=== PATIENT | male | born 1955 | race Caucasian/White ===

== ENCOUNTER 2018-09-05 00:17 | Inpatient (IN) | payer SELFPAY ==
[2018-09-05 00:45] LABS: #Basophils 0.1 thou/uL (0.0-0.2); #Eosinphils 0.3 thou/uL (0.0-0.7); #Lymphocytes 1.3 thou/uL (1.20-3.40); #Monocytes 0.5 thou/uL (0.11-0.59); #Neutrophils 7.8 thou/uL (1.40-6.50); %Basophils 0.9 % (0.0-1.0); %Eosinophils 3.3 % (0.0-10.0); %Lymphocytes 12.8 % (21.0-51.0); %Monocytes 4.9 % (0.0-10.0); Hemoglobin 13.1 g/dL (14.0-18.0); Mean Platelet Volume 7.8 fL (7.4-10.4); Platelet Count 225 thou/uL (130-400); RBC Distribution Width 12.5 % (11.5-14.5); Red Blood Cell (RBC) Count 4.36 mill/uL (4.70-6.10)
[2018-09-05 00:52] LABS: INR-International Normal Ratio 1.1; PTT 26.3 SEC (22.9-36.1); Prothrombin Time 13.9 SEC (12.0-14.7)
[2018-09-05] MEDS ORDERED: Lorazepam 2 MG/ML VIAL ONE ×2 (01:04→01:46)
[2018-09-05 01:07] LABS: ALT (SGPT) 29 U/L (8-55); AST (SGOT) 26 U/L (5-34); Albumin 4.4 g/dL (3.4-4.8); Alcohol Less than 10 mg/dL (Less than 10); Alkaline Phosphatase 64 U/L (40-150); Anion Gap 20 mmol/L (10-20); BUN (Urea Nitrogen) 29 mg/dL (8.4-25.7); Bilirubin, Total 0.4 mg/dL (0.2-1.2); CK (CPK) 702 U/L (30-200); Calc. Creatinine Clearance 0 mL/min (70-130); Calcium 9.6 mg/dL (7.8-10.44); Carbon Dioxide 16 mmol/L (23-31); Chloride 108 mmol/L (98-107); Estimated GFR-MDRD 39; Globulin 3.6 g/dL (2.4-3.5); Glucose 106 mg/dL (80-115); Lipase 36 U/L (8-78); Potassium 4.6 mmol/L (3.5-5.1); Sodium 139 mmol/L (136-145)
[2018-09-05 01:17] LABS: Bilirubin Negative (Negative); Blood, Urine Negative (Negative); Clarity CLOUDY (Clear); Glucose, Urine (Dipstick) Negative (Negative); Leukocyte Negative (Negative); Nitrite Negative (Negative); Protein, Urine (Dipstick) 100 mg/dL (Neg-Trace); Specific Gravity, Urine 1.019 (1.002-1.036); Urobilinogen 0.2 mg/dL (0.2-1.0)
[2018-09-05 01:23] LABS: Bacteria/HPF None Seen HPF (None Seen); Hyaline Casts/LPF 7-10 HYALINE CAST LPF (0-3 Hyaline); Pathc Cast-AUWi Flag 2.17 (0-2.49); RBC/HPF 0-3 HPF (0-3); Squamous Epithelial 0-3 HPF (0-3); WBC/HPF 0-3 HPF (0-3)
[2018-09-05] MEDS ORDERED: Acetaminophen 650 MG Suppository PR PRN (01:33)
[2018-09-05] MEDS ORDERED: Bisacodyl 10 MG SUPP PR PRN (01:33)
[2018-09-05] MEDS ORDERED: HumaLOG 300 UNITS/3 ML VIAL SC PRN (01:33)
[2018-09-05] MEDS ORDERED: Senokot S 8.6-50 MG TAB PO PRN ×2 (01:33)
[2018-09-05] MEDS ORDERED: Diabetic Tussin 200 MG/10 ML UDCUP PO PRN (01:33)
[2018-09-05] MEDS ORDERED: Benzonatate 100 MG CAP PO PRN (01:33)
[2018-09-05] MEDS ORDERED: Bisacodyl 5 MG TAB PO PRN (01:33)
[2018-09-05] MEDS ORDERED: Acetaminophen 325 MG TAB PO PRN (01:33)
[2018-09-05] MEDS ORDERED: Dextrose 5% in Water 1,000 ML IV PRN (01:33)
[2018-09-05] MEDS ORDERED: Calcium Carbonate 500 MG ChewTAB PO PRN (01:33)
[2018-09-05] MEDS ORDERED: cloNIDine 0.1 MG TAB PO PRN (01:33)
[2018-09-05] MEDS ORDERED: Ondansetron PF 4 MG/2 ML Vial IVP PRN ×2 (01:33)
[2018-09-05] MEDS ORDERED: hydrALAZINE 20 MG/ML VIAL SLOW IVP PRN (01:33)
[2018-09-05] MEDS ORDERED: Nitroglycerin 0.4 MG TAB (25 Tab Bottle) SL PRN (01:33)
[2018-09-05] MEDS ORDERED: Dextrose 50% Abboject 50 ML SYRINGE SLOW IVP PRN (01:33)
[2018-09-05] MEDS ORDERED: Sodium Chloride 0.9% 1,000 ML IV SCH (01:45)
[2018-09-05] MEDS ORDERED: Dextrose 50% Abboject 50 ML SYRINGE ONE (01:46)
[2018-09-05 01:47] LABS: Medtox Reader # READER 4; THC/Cannabinoid Screen Not Detected (NotDetected)
[2018-09-05 01:48] LABS: Amphetamine Not Detected (NotDetected); Barbiturates Screen Not Detected (NotDetected); Benzodiazepine Screen Not Detected (NotDetected); Cocaine Metabolite Screen Not Detected (NotDetected); Medtox Control Line Valid? VALID (VALID); Methadone Not Detected (NotDetected); Methamphetamine Not Detected (NotDetected); Opiate Screen Not Detected (NotDetected); Oxycodone Screen Not Detected (NotDetected); Phencyclidine (PCP) Not Detected (NotDetected); Tricyclic Screen Not Detected (NotDetected)
[2018-09-05] MEDS ORDERED: Multivitamins, Adult 10 ML, Folic Acid 1 MG, Thiamine HCl 100 MG in Dextrose 5 %-0.45 %... IV SCH (02:30)
[2018-09-05] MEDS: Lorazepam 2 MG/ML VIAL SLOW IVP PRN ×4 (03:07→10:05)
[2018-09-05 03:13] VITALS: BMI 31.4
--- NOTE | 2018-09-05 03:46 | HP ---
PRIMARY CARE PHYSICIAN: Dr. Abdi Prescott. CHIEF COMPLAINT: Altered mental status. HISTORY OF PRESENTING ILLNESS: Mr. Duff is a 62-year-old male with past medical history of diabetes and hypertension and coronary artery disease, who presented to the emergency room with above-mentioned complaint. History is mainly obtained by the patient's daughter present at the bedside and discussed with admitting ER physician, Dr. Jha. Mr. Duff was brought into the emergency room after he was found on the floor, very somnolent by the family members. History is very sketchy as his who lives with him, found him down, and she is not in the emergency room at this time. Daughter is at bedside. The daughter reports that she was called to their house and it was found that the patient was unresponsive and diaphoretic around 0830 hours last evening. Reportedly, he was working in the barn and drinking and went inside the house to eat. He was found lying on the floor unresponsive, but EMS was not called for about 4 hours. The daughter reports that he does drink on a daily basis and also makes Diamond. She is unsure when was his last drink. She has last seen him last weekend and at that time, he was his normal self. She denies any recent illnesses on behalf of the patient. She denies any history of mental illness or dementia. EMS found the patient very combative, and he received multiple doses of ketamine to calm him down. They also found that he has had blood sugar of 27 and he received dextrose, thiamine, and D50 bumping up his sugars to 120. Upon presentation to the emergency room, his blood pressure was 176/91. He was tachycardic with a pulse of 114. His temperature is recorded as 100. He was very combative in the emergency room and is requiring multiple doses of IV Ativan to calm him down. He is otherwise hemodynamically stable at this time and is able to protect his airways. His further evaluation included serum chemistries, which showed creatinine of 1.76, bicarb of 16 with normal anion gap. His blood sugar has been dwindling anywhere from 60 to 120, is requiring more dextrose injections. His lactic acid came back elevated at 8.5, creatine kinase high at 702. Urinalysis unremarkable. Urine drug screen negative. Plasma alcohol level less than 10. His head CT is reportedly within normal limit and chest x-ray by my review is unremarkable. He was given IV fluids in the emergency room and is now being admitted for further evaluation and care. He does not have any overt signs or symptoms of infection. Elevated lactic acid is thought to be secondary to rhabdomyolysis, dehydration, and possibly free water deficit. PAST MEDICAL HISTORY: 1. Coronary artery disease. 2. Hypertension. 3. Diabetes. PAST SURGICAL HISTORY: Coronary artery bypass graft. ALLERGIES: KNOWN ALLERGIES TO CONTRAST DYE. CURRENT MEDICATIONS: Unavailable. The daughter will bring the medications in the morning. There is no medication list available on the patient. FAMILY HISTORY: Unable to obtain due to altered mental status on the patient's behalf. The daughter does not have any medical illnesses to report. REVIEW OF SYSTEMS: Unable to obtain due to altered mental status. LABORATORY STUDIES: Lab examination; his CBC shows WBCs at 10.0 with 78% neutrophils, otherwise unremarkable. PT, PTT, INR are unremarkable. Serum chemistry showed chloride of 108, bicarb 16, BUN 29, creatinine 1.76 with lactic acid of 8.5. His liver enzymes are unremarkable. Creatine kinase is 702. Lipase normal. Urinalysis shows some proteinuria, otherwise unremarkable. Urine drug screen and plasma alcohol levels are normal. Chest x-ray by my review shows no evidence of any effusion, edema, or infiltrate. A 12-lead EKG by my review shows sinus tachycardia with some PACs, otherwise no acute ST or T-wave changes. CT scan of the brain, preliminary read is negative for any intracranial bleed or acute infarction. Formal report is pending at this time. PHYSICAL EXAMINATION: VITAL SIGNS: Most recent vital signs; blood pressure 158/78, pulse of , respirations 22, temperature 100 degrees, saturating 95% on 4 L oxygen. GENERAL: The patient is very combative, altered and is not able to follow any commands. His eyes are open, but he does not respond. He is thrashing around in the bed and is in restraints. HEENT EXAMINATION: Mucous membrane is slightly dry. No oropharyngeal exudate or erythema. Pupils are dilated and reactive to light. NECK: Supple without any lymphadenopathy, JVD, or bruit. CHEST: Clear to auscultation without any wheezing, rales, or rhonchi. CARDIAC: He is tachycardic with a regular rhythm without any specific murmurs. ABDOMEN: Slightly distended. No rebound, guarding, or rigidity. Bowel sounds are heard. Soft. EXTREMITIES: Free of any cyanosis, clubbing, or edema. NEUROLOGICAL: Examination is very limited because the patient does not follow any commands. He was also in four-point restraints at this time. Arredondo catheter is in place with clear urine. SKIN: Free of any rashes or bruises. Feels warm and dry to touch. EXTREMITIES: Free of any cyanosis, clubbing, or edema. IMPRESSION AND PLAN: 1. Altered mental status, most likely due to hypoglycemia, but sepsis also cannot be ruled out with elevated lactic acid and low-grade fever. We will obtain blood cultures and admit him to the IM. I have discussed with the daughter, and he will be a full code until he is able to make his own decisions. Daughter is his spokesperson for now. At this time, no clear etiology for his mentation changes is available. We may need to obtain an MRI of his brain with and without, an EEG to rule out acute CVA and-or seizures. At this time, we will make sure that he is hemodynamically stable and continue supportive care. Blood cultures have been ordered. No real indication for antibiotic at this time. Fall and aspiration precautions will be instituted. 2. Elevated lactic acid, most likely due to tissue hypoperfusion and rhabdomyolysis. We will resuscitate him with IV fluids and recheck the lactic acid. As above, sepsis cannot be ruled out. Blood cultures will be ordered. 3. Rhabdomyolysis. The patient has been lying on the floor for hours. We will start him on IV fluids and recheck CPK in the morning. 4. Acute renal insufficiency. Baseline is unknown. Once again, pre-renal azotemia due to dehydration and poor oral intake is suspected. Resuscitated with IV fluids and recheck in the morning. Avoid any nephrotoxins. 5. Hypoglycemia due to poor oral intake. The patient has history of hypoglycemia multiple times requiring intervention on his family's behalf. We will start him on hypoglycemia protocol and monitor blood sugar carefully. 6. History of coronary artery disease. We will obtain his home medications and restart when he can safely take it. We would check cardiac enzymes at this time as well to rule out acute cardiac event as the reason for his presentation. 7. Diabetes mellitus. We will hold any oral hypoglycemic or long-acting insulin for now. Start him on gentle sliding scale insulin with frequent Accu-Cheks. 8. Chronic alcoholism. He is very high risk for alcohol withdrawal. Ativan p.r.n. has been ordered. He will be started on folic acid, thiamine, and multivitamin. We will give him one banana bag for now. 9. Hypertension, currently controlled. We will add p.r.n. antihypertensives for now and reconfirm his home medications in the morning from his pharmacy. 10. Code status. I have briefly discussed this with his daughter at bedside. Full code for now. This will further be confirmed once the patient is more awake. 11. Deep venous thrombosis and gastrointestinal prophylaxis. DISPOSITION: Mr. Duff is currently being admitted to IM for altered mental status and lactic acidosis. Further management will depend upon his clinical course. Estimated length of stay at this time is at least 2 to 3 midnights. Job ID: [id number]
[2018-09-05] MEDS: Dextrose 5 %-0.45 % NaCl 1,000 ML IV SCH ×4 (04:29→22:10)
[2018-09-05 04:31] LABS: #Eosinphils 0.2 thou/uL (0.0-0.7); #Lymphocytes 0.9 thou/uL (1.20-3.40); #Monocytes 0.6 thou/uL (0.11-0.59); %Basophils 0.3 % (0.0-1.0); %Eosinophils 1.7 % (0.0-10.0); %Lymphocytes 9.1 % (21.0-51.0); %Monocytes 6.4 % (0.0-10.0); %Neutrophils 82.6 % (42.0-75.0); Hemoglobin 11.8 g/dL (14.0-18.0); Mean Corpuscular HGB CONC 33.6 g/dL (32.0-36.0); Mean Corpuscular Hemoglobin 30.1 pg (27.0-31.0); Mean Corpuscular Volume 89.6 fL (78.0-98.0); Mean Platelet Volume 8.1 fL (7.4-10.4); Platelet Count 177 thou/uL (130-400); RBC Distribution Width 12.5 % (11.5-14.5); Red Blood Cell (RBC) Count 3.91 mill/uL (4.70-6.10); White Blood Cell (WBC) Count 9.7 thou/uL (4.8-10.8)
[2018-09-05 04:41] LABS: Lactic Acid 1.1 mmol/L (0.5-2.2)
[2018-09-05 04:42] LABS: Anion Gap 12 mmol/L (10-20); BUN (Urea Nitrogen) 26 mg/dL (8.4-25.7); Calc. Creatinine Clearance 74 mL/min (70-130); Carbon Dioxide 21 mmol/L (23-31); Chloride 107 mmol/L (98-107); Estimated GFR-MDRD 47; Glucose 116 mg/dL (80-115); Potassium 4.2 mmol/L (3.5-5.1); Sodium 136 mmol/L (136-145)
--- NOTE | 2018-09-05 08:12 | CT ---
PRELIMINARY REPORT/[facility]/EMERGENCY AFTER HOURS PROCEDURE: EXAM: CT Head Without Contrast EXAM DATE/TIME: 09/05/2018 12:33 AM CLINICAL HISTORY: 62 years old, male; Signs and symptoms; Altered mental status/memory loss; Patient HX: Enrique presents to ed via ems for complaint of AMS, ems called by pt's . Per ems, PT given 400 ketamine im initially for combativeness and then given 60 ketamine iv x2 for continued combativeness. Ems states PT was la connie on floor groaning and thrashing on their arrival to the pt's home. Ems also reports PT has HX of dm and has not eaten since 11: 00 this am and had glucose of 27 f or which PT was given 25 of dextrose, 100 of thiamine, and 10ml d50 with last glucose at 120 TECHNIQUE: Imaging protocol: Axial computed tomography images of the head/brain without contrast. COMPARISON: No relevant prior studies available. FINDINGS: Brain: Scattered areas of hypoattenuation, likely chronic small vessel ischemic change, demyelination , or gliosis. There is parenchymal atrophy. No mass, hemorrhage, or acute infarction. Ventricles: Normal. Bones/joints: Normal. Sinuses: Minimal ethmoid sinus disease. Mastoid air cells: Normal as visualized. Soft tissues: Unremarkable. Vasculature: Atherosclerotic vascular calcifications. IMPRESSION: No acute intracranial abnormality. Thank you for allowing us to participate in the care of your patient. Dictated and Authenticated by: Lemuel Tamez MD 09/05/2018 1:21 AM Central Time ([place] & [place]) FINAL REPORT EMERGENCY AFTER HOURS CT BRAIN PERFORMED WITHOUT CONTRAST ENHANCEMENT: Date: 09/05/18 HISTORY: Altered mental status. FINDINGS: Ventricular and cisternal system shows some mild atrophy. There are no signs of intracerebral hemorrh age or extra-axial fluid collections. Mastoid air cells are underdeveloped. This is a developmental f ining. Visualized sinuses are clear. There is minimal ethmoid air cell mucosal change. IMPRESSION: No acute intracranial abnormalities. This report is in agreement with the preliminary report issued by [facility]. POS: [facility]
--- NOTE | 2018-09-05 08:27 | RAD ---
PORTABLE CHEST: History: Altered mental status. FINDINGS: Heart size within normal limits. There are post op sternotomy changes. The lungs are clear of infiltr ate. No significant bony findings. IMPRESSION: No active intrathoracic disease. POS: [facility]
[2018-09-05] MEDS: Famotidine/PF 20 mg/2ml Vial SLOW IVP SCH (08:42)
[2018-09-05] MEDS: Heparin 5,000 UNITS/ML VIAL SC SCH ×3 (08:43→20:02)
[2018-09-05] MEDS: Folic Acid 1 MG TAB PO SCH (08:43)
[2018-09-05] MEDS: Lorazepam 2 MG/ML VIAL SLOW IVP SCH ×3 (12:52→20:01)
[2018-09-05] MEDS: Haloperidol Lactate 5 MG/ML VIAL SLOW IVP SCH ×3 (12:53→20:01)
[2018-09-05] MEDS: HumaLOG 300 UNITS/3 ML VIAL SC PRN ×2 (12:57→15:45)
--- NOTE | 2018-09-05 17:51 | CON ---
DATE OF CONSULTATION: 09/05/2018 HISTORY OF PRESENT ILLNESS: Mr. Duff is a 62-year-old male found down hypoglycemic at home. He is still encephalopathic in the critical care unit. There is a very prolonged period of time before EMS was called for the admission note. He has a history of not checking his blood sugars and just giving himself insulin, and he has had hypoglycemic episodes at home reportedly. Apparently, the family just put something sweet in his mouth when these episodes occur. PAST MEDICAL HISTORY: Remarkable for coronary artery disease, hypertension, diabetes, and coronary artery bypass grafting. ALLERGIES: REPORTED ALLERGY TO IV DYE. MEDICATIONS: At home are unknown. FAMILY HISTORY: Unknown. SOCIAL HISTORY: Unknown. REVIEW OF SYSTEMS: 10 point review of systems completed, not obtainable. He has four-point restraints in place. PHYSICAL EXAMINATION: VITAL SIGNS: Heart rate 94, blood pressure 108/88, respiratory rate is 20, and pulse oximetry is 99%. HEENT: Pupils are reactive. Sclerae are anicteric. NECK: Supple. GENERAL: He will not follow commands. He will not make eye contact. LUNGS: Remarkable for coarse equal breath sounds. HEART: Regular rhythm. S1 and S2 are normal. ABDOMEN: Soft and nontender. EXTREMITIES: Without asymmetry, clubbing, or edema. LABORATORY DATA: White count 9.7, hemoglobin 11.8, and platelets 177. Sodium 136, potassium 4.2, chloride 107, bicarb 21, BUN 26, creatinine 1.5. Creatinine is 1.76 early this morning when he was admitted. Glucoses have been 112 on admission, 44 , 342 112 when last checked. IMPRESSION: Encephalopathy secondary to prolonged hypoglycemia. His encephalopathy will be slow to resolve most likely. I doubt he has had a thrombotic cerebrovascular accident. CAT scan showed no hemorrhagic cerebrovascular accident. He will not hold still for an MRI, so there is really no reason to do an MRI at this point. Recommended Haldol, mixed with Ativan since he is a heavy drinker by history IV every hour. Hopefully, we will see gradual improvement of his encephalopathy. D5 was added for his hypoglycemia, did receive thiamine reportedly in the emergency room. TIME SPENT: This is a 70-minute consult, with greater than 50% of the time is spent on the unit coordinating care. Job ID: [id number] [facility]
--- NOTE | 2018-09-05 22:36 | PDOC.EVN ---
Event Note - Event Note Event Note: Patient examined. Discussed case with patient's daughter who is at the bedside. Patient has had episodes similar to this in the past, but came around after EMS interventions. He is started to come around. He had been very combative in the ED and required a large amount of meds. Now on Haldol and ativan. Suspect he was severely hypoglycemic and then received the meds in ED and EMS. Will need to maintain blood sugars and give him some time to wear off some of the meds. Daughter indicates he goes days without drinking and does not have WD problems.
[2018-09-06] MEDS: Haloperidol Lactate 5 MG/ML VIAL SLOW IVP SCH ×3 (00:32→08:29)
[2018-09-06] MEDS: Lorazepam 2 MG/ML VIAL SLOW IVP SCH ×5 (00:33→16:38)
[2018-09-06] MEDS: HumaLOG 300 UNITS/3 ML VIAL SC PRN ×4 (00:49→21:14)
[2018-09-06] MEDS: Lorazepam 2 MG/ML VIAL SLOW IVP PRN (03:20)
[2018-09-06] MEDS: Dextrose 5 %-0.45 % NaCl 1,000 ML IV SCH ×2 (04:33→16:24)
[2018-09-06] MEDS: Heparin 5,000 UNITS/ML VIAL SC SCH ×3 (08:31→19:55)
[2018-09-06] MEDS: Famotidine/PF 20 mg/2ml Vial SLOW IVP SCH (08:31)
[2018-09-06] MEDS: Folic Acid 1 MG TAB PO SCH (08:32)
[2018-09-06] MEDS ORDERED: Ziprasidone 20 MG VIAL IM PRN (09:21)
[2018-09-06 10:01] LABS: #Basophils 0.1 thou/uL (0.0-0.2); #Lymphocytes 0.9 thou/uL (1.20-3.40); #Monocytes 0.7 thou/uL (0.11-0.59); #Neutrophils 5.4 thou/uL (1.40-6.50); %Basophils 0.7 % (0.0-1.0); %Eosinophils 11.9 % (0.0-10.0); %Lymphocytes 11.3 % (21.0-51.0); %Monocytes 8.5 % (0.0-10.0); %Neutrophils 67.5 % (42.0-75.0); Hemoglobin 12.2 g/dL (14.0-18.0); Mean Corpuscular HGB CONC 33.9 g/dL (32.0-36.0); Mean Corpuscular Hemoglobin 30.3 pg (27.0-31.0); Mean Corpuscular Volume 89.6 fL (78.0-98.0); Mean Platelet Volume 7.9 fL (7.4-10.4); Platelet Count 147 thou/uL (130-400); RBC Distribution Width 12.2 % (11.5-14.5); Red Blood Cell (RBC) Count 4.02 mill/uL (4.70-6.10)
[2018-09-06 10:18] LABS: Anion Gap 10 mmol/L (10-20); BUN (Urea Nitrogen) 14 mg/dL (8.4-25.7); Calc. Creatinine Clearance 0 mL/min (70-130); Carbon Dioxide 23 mmol/L (23-31); Chloride 103 mmol/L (98-107); Estimated GFR-MDRD 55; Glucose 241 mg/dL (80-115); Potassium 4.2 mmol/L (3.5-5.1); Sodium 132 mmol/L (136-145)
--- NOTE | 2018-09-06 10:28 | PRG ---
DATE OF SERVICE: 09/06/2018 SUBJECTIVE: The patient has been encephalopathic all night long. He is in four-point restraints because of agitation. OBJECTIVE: VITAL SIGNS: Temperature 98.7, pulse 67, blood pressure 112/58. A 24-hour intake 3722, output 3405. HEENT: One open eyes to commands, but does talk and muffle phrases. NECK: No JVD. LUNGS: Clear to auscultation. CARDIAC: S1 and S2. Slightly tachycardic. ABDOMEN: Soft and nontender. EXTREMITIES: No edema. LABORATORY DATA: The chemistry and CBC from this morning are pending. ASSESSMENT: 1. Alcohol withdrawal. 2. Encephalopathy. 3. Prolonged hypoglycemia. PLAN: The daughter told me that the patient actually makes his own [place] at home and drinks at least a 12-pack per week. I would assume that most of what we are seeing is probably alcohol withdrawal. RECOMMENDATIONS: 1. Try Precedex drip. 2. Continue the thiamine and banana bag. 3. Continue care in CCU until his mental status improves. Job ID: [id number]
[2018-09-06] MEDS: Multivitamins, Adult 10 ML, Thiamine HCl 100 MG, Folic Acid 1 MG in Dextrose 5 %-0.45 %... IV SCH (12:26)
--- NOTE | 2018-09-06 18:34 | PRG ---
DATE OF SERVICE: 09/06/2018 SUBJECTIVE: The patient is sedated. His daughter does report that he is getting a little better and less agitated when he does wake up a little bit. OBJECTIVE: VITAL SIGNS: Temperature 97.5, pulse 73, blood pressure 111/79, respirations 14, O2 saturation 94% on room air. GENERAL APPEARANCE: Age-appropriate male. He is sleeping soundly, in no distress. HEART: Regular rate and rhythm without murmurs, gallops, or rubs. LUNGS: Clear to auscultation bilaterally with good chest wall expansion and air exchange. ABDOMEN: Soft, nontender, and nondistended. Positive bowel sounds. No masses. No organomegaly. EXTREMITIES: No cyanosis, clubbing, or edema. LABORATORY DATA: White count 8.0, hemoglobin 12.2, and platelets 147. Sodium 132, potassium 4.2, chloride 103, CO2 is 23, BUN is 14, creatinine 1.3, glucose 241 to 259. Blood cultures negative. IMPRESSION AND PLAN: 1. Severe hypoglycemia. The patient has been taking regular doses of insulin without adjustments or monitoring his blood sugars and has had prior episodes of hypoglycemia. With this particular episode, he was down for several hours before the ambulance was called. He had some combativeness and required significant sedation. He has been on D5 half-normal drip. His blood sugars are now running a bit higher. We will go ahead and decrease the D5 half-normal dose because of the hyponatremia that he has developed. 2. Hyponatremia, likely secondary to dilute fluids being administered. We will decrease the dose of those and continue to monitor. 3. Possible alcohol withdrawal. I have been receiving some mixed information regarding how much the patient actually drinks. The patient does make his own grain alcohol and it is not real clear how much he actually drinks; however, his agitation and such would certainly be suggestive of alcohol withdrawal. He is now receiving Precedex and Geodon. The Geodon has worked well, so the Precedex at this point has not been resumed. We will continue with the vitamin supplementation per typical protocol. Job ID: [id number]
[2018-09-07] MEDS: Lorazepam 2 MG/ML VIAL SLOW IVP SCH ×4 (01:37→11:25)
[2018-09-07] MEDS: Dextrose 5 %-0.45 % NaCl 1,000 ML IV SCH ×2 (05:55→14:56)
[2018-09-07 06:15] LABS: Anion Gap 12 mmol/L (10-20); BUN (Urea Nitrogen) 14 mg/dL (8.4-25.7); Calc. Creatinine Clearance 0 mL/min (70-130); Calcium 9.2 mg/dL (7.8-10.44); Carbon Dioxide 22 mmol/L (23-31); Chloride 104 mmol/L (98-107); Estimated GFR-MDRD 56; Glucose 241 mg/dL (80-115); Potassium 4.4 mmol/L (3.5-5.1); Sodium 134 mmol/L (136-145)
--- NOTE | 2018-09-07 08:04 | PRG ---
DATE OF SERVICE: 09/07/2018 SUBJECTIVE: He is awake, alert, completely different from yesterday. OBJECTIVE: VITAL SIGNS: Temperature is 98.0, pulse 63, and blood pressure 149/83. A 24-hour intake 1319, output 2885. HEENT: Unremarkable. NECK: No JVD. CHEST: Clear to auscultation. CARDIAC: S1 and S2, regular. ABDOMEN: Soft and nontender. EXTREMITIES: No edema. NEUROLOGIC: Nonfocal throughout. LABORATORY DATA: Sodium 134, potassium 4.4, chloride 104, CO2 of 22, BUN 14, creatinine 1.2, and glucose 241. ASSESSMENT: 1. Alcohol withdrawal, which seems to be resolving. 2. Encephalopathy, improved. 3. Prolonged hypoglycemia. PLAN: 1. Continue the daily banana bag. 2. He can be transferred out to the floor. 3. Continue DT precautions. 4. He never needed initiation of the Precedex drip yesterday. Job ID: [id number]
[2018-09-07] MEDS: HumaLOG 300 UNITS/3 ML VIAL SC PRN ×3 (08:54→15:51)
[2018-09-07] MEDS: Heparin 5,000 UNITS/ML VIAL SC SCH ×2 (08:55→15:00)
[2018-09-07] MEDS ORDERED: Famotidine 20 MG TAB PO SCH (09:00)
[2018-09-07 09:31] VITALS: TEMP 98.3
[2018-09-07] MEDS: Multivitamins, Adult 10 ML, Thiamine HCl 100 MG, Folic Acid 1 MG in Dextrose 5 %-0.45 %... IV SCH (11:23)
[2018-09-07 16:04] VITALS: BP 187/91
--- NOTE | 2018-09-08 03:50 | DIS ---
DATE OF ADMISSION: 09/05/2018 DATE OF DISCHARGE: 09/07/2018 DISCHARGE DIAGNOSES: 1. Severe hypoglycemia. 2. Hyponatremia. 3. Agitation/encephalopathy. 4. Concern for possible alcohol withdrawal type symptoms. 5. Diabetes mellitus. 6. Hypertension. 7. Hyperlipidemia. HISTORY OF PRESENT ILLNESS: This patient is a 62-year-old male who has type 2 diabetes, who says he was told by his doctor to try to maintain his morning and evening 70/30 insulin doses at the same amount. He has gotten up to 40 units b.i.d. and says his hemoglobin A1c has been doing well with that. The patient had lost his glucometer and has not been doing Accu-Cheks. The patient also does consume alcohol and has a history of fairly heavy use, but states that recently he really does not drink that much and has gone several days at a time without withdrawal. With that history, the patient was found down by his family. They reported that he had had prior episodes of hypoglycemia with loss of consciousness, typically EMS would be called and he could be managed there and not come to the hospital. On this occasion, the patient was apparently down for about 4 hours. He was noted to have a blood sugar in the 20s by EMS. He was brought to the hospital where his blood sugar was resuscitated and he became very agitated, requiring multiple doses of ketamine in order to settle him down. He had relatively stable vital signs. No other major findings. He was subsequently placed in the ICU. HOSPITAL COURSE: The patient was started on a dextrose drip and changed to Haldol and Ativan for control of his agitation. He had some low-grade fevers, but no other signs of infection and a normal white count. He was subsequently converted over to Precedex and Geodon. The Geodon seemed to work well and Precedex was never initiated. The following day, the patient was more fully awake, alert, appropriate. He was started on clear liquids, which he tolerated well and was transferred to the floor. On the floor, the patient is up walking around. He is perfectly coherent. He is being advanced to a full diet. I had a long discussion with the patient regarding his diabetes regimen and recommended cutting the dose back to 40 in the morning, 20 in the evening and allowing for hyperglycemia in the short-terms that he can follow up with his PCP and determine, if there is any changes that need to be made in his regimen in the short term. Once the patient tolerates the meal adequately, we will be able to discharge to home on the day of discharge. PHYSICAL EXAMINATION: VITAL SIGNS: Temperature 98.3, pulse 56, respirations 19, O2 saturation 100% on room air, BP 163/87. GENERAL: He is awake, alert, oriented, pleasant, and cooperative. HEART: Regular rate and rhythm without murmurs, gallops, or rubs. LUNGS: Clear to auscultation bilaterally with good chest wall expansion and air exchange. ABDOMEN: Soft, nontender, and nondistended. Positive bowel sounds. No masses. No organomegaly. EXTREMITIES: No cyanosis, clubbing, or edema. LABORATORY DATA: His blood sugars are ranging from 194 to 277. DISPOSITION: The patient will be discharged to home. DISCHARGE INSTRUCTIONS: Diet: He will remain on a diabetic diet. Activity: As tolerated. DISCHARGE MEDICATIONS: He will continue with his usual home medications includin. Nifedipine. 2. Rosuvastatin. 3. Labetalol. 4. Onglyza. 5. Lisinopril/HCTZ. 6. Synthroid. 7. Plavix. 8. Metformin. 9. Aldactone. 10. Insulin 70/30 with again the recommendations to decrease his p.m. dose to 20 units. FOLLOWUP: He is to follow up with his PCP soon and he can return to the hospital at any time should he have any problems prior to that time. Time spent in discharge activities, including face to face time with the patient and his family was 40 minutes. Job ID: [id number] [facility]
--- NOTE | 2018-09-10 07:38 | PQF ---
[employer] Win[employer] Viewer TOSIN CAT JOHN MD [id number] CLINICAL DOCUMENTATION CLARIFICATION FORM: POST DISCHARGE Addendum to original discharge summary date: ____ Late entry note date: __ DATE: 09/10/18 ATTN: Deo Guerrero Please exercise your independent, professional judgment in responding to the clarification form. Clinical indicators are provided on the bottom of this form for your review Can you please further specifty the patient encephalopathy Please check appropriate box(s): [ ] Encephalopathy: Type: [ ] Acute [ ] Subacute Etiology: [ ] Metabolic [ ] Toxic [ ] Unspecified [ ] Other (please specify) [ ] Other diagnosis [ ] Unable to determine For continuity of documentation, please document condition throughout progress notes and discharge summary. Thank You. CLINICAL INDICATORS - SIGNS / SYMPTOMS / LABS H and P pg.1 09/05 Dr. Lutz- patient was very combative and he received multiple doses of ketamine to calm him down H and P pg.1 09/05 Dr. Lutz- found to have blood sugar of 27 and receive dextrose, thiamine, and D50 bumping up his sugar to 120 H and P pg.3 09/05 Dr. Lutz- altered mental status, most likely due to hypoglycemia Consult pg.1 09/05 Dr. Ellis - Encephalopathy secondary to prolonged hypoglycemia RISK FACTORS Severe Hypoglycemia- DS pg.1 Diabetes Mellitus- DS pg.1 Hypertension-DS pg.1 Hyperlipidemia- DS pg.1 Alcohol withdrawal- PN pg.1 Hyponatremia-DS pg.1 TREATMENTS: Dextrose 50% 25mg Slow IV- MAR Haloperidol 10mg Slow IV- MAR Dexmedetomidine- 200mcg IV- MAR HumaLOG SC- MAR (This form is maintained as a part of the permanent medical record) 2014 [employer]. All Rights Reserved [email or web address] [not [email or web address]] [email or web address]
--- NOTE | 2018-09-11 06:34 | PQF ---
[employer] TOSIN CAT, LUI Root MD [id number] CLINICAL DOCUMENTATION CLARIFICATION FORM: POST DISCHARGE Addendum to original discharge summary date: 09/07/18 Late entry note date: 09/11/18 DATE: 09/10/18 ATTN: SHEREE JOYNER Please exercise your independent, professional judgment in responding to the clarification form. Clinical indicators are provided on the bottom of this form for your review Can you please further specifty the patient Encephalopathy Please check appropriate box(s): [ x ] Encephalopathy: Type: [ ] Acute [ ] Subacute [x ] Metabolic [ ] Toxic [ ] Other please specify [ ] Unspecified [ ] Unable to determine In addition, please specify: Present on Admission (POA): [ x ] Yes [ ] No [ ] Unable to determine For continuity of documentation, please document condition throughout progress notes and discharge summary. Thank You. CLINICAL INDICATORS H and P pg.1 09/05 Dr. Lutz- Altered mental status H and P pg.1 09/05 Dr. Lutz- patient was very combative and he received multiple doses of ketamine to calm him down H and P pg.1 09/05 Dr. Lutz- found to have blood sugar of 27 and receive dextrose, thiamine, and D50 bumping up his sugar to 120 H and P pg.3 09/05 Dr. Lutz- altered mental status, most likely due to hypoglycemia Consult pg.1 09/05 Dr. Ellis - Encephalopathy secondary to prolonged hypoglycemia PN4 pg.1 Dr. Kulkarni - "Alcohol withdrwal,which seems to be resolving Laboratory- Sodium 134L 09/07, Glucose 44L 09/05, Alcohol level <10 RISK FACTORS Severe Hypoglycemia- DS pg.1 Diabetes Mellitus- DS pg.1 Hypertension-DS pg.1 Hyperlipidemia- DS pg.1 Alcohol withdrawal- PN pg.1 Hyponatremia0- DS pg.1 TREATMENTS: Lorazepam (ativan) 2mg- route STK-Med- MAR Dextrose 50% 25mg Slow IV- MAR Haloperidol 10mg Slow IV- MAR Dexmedetomidine- 200mcg IV- MAR HumaLOG SC- MAR Thiamine HCl 100mg IV Q24H- MAR (This form is maintained as a part of the permanent medical record) 2014 [employer]. All Rights Reserved [email or web address] [not [email or web address]] [email or web address]
== END 2018-09-07 17:46 | disposition home or self-care (01) | DRG 637 ==
LOC: ERS 00:17 → EDBD 00:17 → CCU 02:45 → T4-A 09-07 09:26
PROVIDERS: ADMIT Internal Medicine; ATTEND Internal Medicine
PROC: HZ2ZZZZ Detoxification Services for Substance Abuse Treatment (ICD-10-PCS; principal; 2018-09-05)
DX: E11.649 Type 2 diabetes mellitus with hypoglycemia without coma (principal); G93.41 Metabolic encephalopathy; M62.82 Rhabdomyolysis; F10.239 Alcohol dependence with withdrawal, unspecified; E87.1 Hypo-osmolality and hyponatremia; I10 Essential (primary) hypertension; I25.10 Atherosclerotic heart disease of native coronary artery without angina pectoris; E86.0 Dehydration; N28.9 Disorder of kidney and ureter, unspecified; R45.6 Violent behavior; Z95.1 Presence of aortocoronary bypass graft; Z91.041 Radiographic dye allergy status; I25.2 Old myocardial infarction; Z79.899 Other long term (current) drug therapy; Z79.4 Long term (current) use of insulin; E78.5 Hyperlipidemia, unspecified; Z79.02 Long term (current) use of antithrombotics/antiplatelets; E11.65 Type 2 diabetes mellitus with hyperglycemia
CPT/HCPCS: 36415; 36416; 51702; 70450; 71045; 80048; 80053; 80306; 80307; 81003; 81015; 82550; 83605; 83690; 83930; 84484; 85025; 85610; 85730; 87040; 93005; 94760; 96361; 96374; 96375; 96376; 99292; J1630; J1644; J2060; J3411; J3486; J7042; J7050; S0028